=== PATIENT | female | born 1985 | race African-American/Black ===

== ENCOUNTER 2016-08-18 12:48 | Inpatient (IN) | payer OTHER ==
[~2016-08-18] VITALS: Ht 180.3 cm; Wt 135.5 kg
[2016-08-18] VITALS (12 sets, daily range): BP systolic 119–153; BP diastolic 58–93
[~2016-08-18 12:48] MED LIST: ADDERALL15 MG PO; ADDERALL30 MG PO; CLINDAMYCIN HC300 MG PO; DULCOLAX5 MG PO; FLEXERIL10 MG PO; FLEXERIL5 MG PO; INDOCIN50 MG PO; LIDODERM 5% P1 PATCH TD; MOBIC7.5 MG PO; NAPROSYN500 MG PO; NAPROXEN500 MG PO; NOHOMEMEDS; NORCO 5/3251 TABLET PO; PERCOCET 7.51 TABLET PO; ROBAXIN500 MG PO; ROBITUSSIN AC,T10 ML PO; SKELAXIN800 MG PO; TRAMADOL HCL50 MG PO; ULTRAM50 MG PO; VALIUM5 MG PO; ZYRTEC10 M3 PO
[2016-08-18] MEDS ORDERED: PRENATAL TABLE1 EAC3 PO (14:15)
[2016-08-18 14:27] LABS: EOSINOPHIL (%) 0.7 % (0-5); EOSINOPHIL COUNT 0.1 K/uL (0-0.3); HEMATOCRIT 35.7 % (36.0-46.0); IMMATURE GRANULOCYTE (%) 0.9 % (0.0-0.7); IMMATURE GRANULOCYTE COUNT 0.1 K/uL; INSTRUMENT ABS NEUTROPHIL CT 7.5 K/uL; LYMPHOCYTE COUNT 2.1 K/uL (1.0-2.8); MCH 27.6 PG (29.0-34.0); MCHC 33.9 G/DL (30.0-36.0); MCV 81.5 FL (83-99); MEAN PLAT.VOLUME 10.6 uM^3 (9.5-12.4); MONOCYTE (%) 5.7 % (3-12); MONOCYTE COUNT 0.6 K/uL (0-0.8); NEUTROPHIL (%) 72.1 % (45-76); NEUTROPHIL COUNT 7.5 K/uL (1.8-6.4); PLATELET COUNT 274 K/uL (156-360); RBC DIS.WIDTH-SD 37.7 % (39-53); RED BLOOD COUNT 4.38 M/uL (3.80-5.20); WHITE BLOOD COUNT 10.4 K/uL (4.1-10.2)
[2016-08-18 16:02] LABS: AMPHETAMINES QUANT VALUE 0 NG/ML; BARBITUATES QUANT VALUE 0 NG/ML; BENZODIAZEPINES QUANT VALUE 0 NG/ML; BENZODIAZEPINES, URINE SCREEN Negative (200 ng/mL); MARIJUANA QUANT VALUE 0 NG/ML; OPIATES QUANTITATIVE VALUE 0 NG/ML; PHENCYCLIDINE QUANT VALUE 0 NG/ML
[2016-08-19 02:23] VITALS: BP 148/72
[2016-08-19 04:27] VITALS: BP 117/59
[2016-08-19 06:31] VITALS: BP 99/52
[2016-08-19 06:48] LABS: EOSINOPHIL (%) 0 % (0-5); HEMATOCRIT 33.2 % (36.0-46.0); IMMATURE GRANULOCYTE (%) 0.6 % (0.0-0.7); IMMATURE GRANULOCYTE COUNT 0.1 K/uL; INSTRUMENT ABS NEUTROPHIL CT 17.1 K/uL; LYMPHOCYTE COUNT 1.4 K/uL (1.0-2.8); MCH 27.2 PG (29.0-34.0); MCHC 33.1 G/DL (30.0-36.0); MEAN PLAT.VOLUME 10.6 uM^3 (9.5-12.4); MONOCYTE (%) 2.8 % (3-12); MONOCYTE COUNT 0.5 K/uL (0-0.8); NEUTROPHIL (%) 89.4 % (45-76); NEUTROPHIL COUNT 17.1 K/uL (1.8-6.4); PLATELET COUNT 269 K/uL (156-360); RBC DIS.WIDTH-CV 12.7 % (11.8-14.6); RBC DIS.WIDTH-SD 38.3 % (39-53); RED BLOOD COUNT 4.05 M/uL (3.80-5.20); WHITE BLOOD COUNT 19.1 K/uL (4.1-10.2)
[2016-08-19 08:28] VITALS: BP 116/67
[2016-08-19 11:08] LABS: TREPONEMA ANTIBODY NEGATIVE (NEGATIVE)
[2016-08-19 23:00] VITALS: BP 120/57
[2016-08-20 02:47] VITALS: BP 115/61
[2016-08-20 08:01] VITALS: BP 120/65
[2016-08-20 10:56] VITALS: BP 99/54
[2016-08-20 14:26] VITALS: BP 117/59
[2016-08-21 06:56] VITALS: BP 133/72
[2016-08-21 11:06] VITALS: BP 128/67
[2016-08-21 19:35] VITALS: BP 130/85
[2016-08-21 23:03] VITALS: BP 127/64
[2016-08-22 03:09] VITALS: BP 140/80
[2016-08-22 07:08] VITALS: BP 139/95
[2016-08-22] MEDS ORDERED: IBUPROFEN800 MG PO (08:40)
[2016-08-22] MEDS ORDERED: OXYCODONE-APAP1 EACH PO (08:40)
[2016-08-22 09:00] VITALS: BP 126/64
[2016-08-22 10:49] VITALS: BP 129/74
== END 2016-08-22 14:08 | disposition home or self-care (01) | DRG 765 ==
LOC: LDRP-OP → 2WEST 12:49 → LDRP-OP 09-26 15:07
PROVIDERS: Advanced Practice Midwife; Obstetrics & Gynecology
PROC: 3E0R3CZ (ICD-10-PCS; principal; 2016-08-18)
PROC: 00HU33Z Insertion of Infusion Device into Spinal Canal, Percutaneous Approach (ICD-10-PCS; principal; 2016-08-18)
PROC: 10D00Z1 Extraction of Products of Conception, Low, Open Approach (ICD-10-PCS; principal; 2016-08-18)
DX: O76 Abnormality in fetal heart rate and rhythm complicating labor and delivery (principal); O36.5930 Maternal care for other known or suspected poor fetal growth, third trimester, not applicable or unspecified; O69.2XX0 Labor and delivery complicated by other cord entanglement, with compression, not applicable or unspecified; O41.03X0 Oligohydramnios, third trimester, not applicable or unspecified; E66.9 Obesity, unspecified; O69.81X0 Labor and delivery complicated by cord around neck, without compression, not applicable or unspecified; O77.0 Labor and delivery complicated by meconium in amniotic fluid; O99.323 Drug use complicating pregnancy, third trimester; F14.90 Cocaine use, unspecified, uncomplicated; O99.824 Streptococcus B carrier state complicating childbirth; O99.214 Obesity complicating childbirth; Z68.30 Body mass index [BMI] 30.0-30.9, adult; Z3A.38 38 weeks gestation of pregnancy; Z37.0 Single live birth
CPT/HCPCS: 80306 90; 85025; 86780; 86900; 86901; 88307; C1755; J1050; J1100; J1200; J1885; J2274; J2405; J3010; J7120

== ENCOUNTER 2016-12-12 13:07 | Day surgery (SDC) | payer OTHER ==
[~2016-12-12] VITALS: Ht 177.8 cm; Wt 135.5 kg
[~2016-12-12 13:07] MED LIST changes: -ADDERALL15 MG PO; +IBUPROFEN800 MG PO; +OXYCODONE-APAP1 EACH PO; +PRENATAL TABLE1 EAC3 PO
== END 2016-12-12 14:30 | disposition home or self-care (01) ==
LOC: PAIN 13:07 → SDC 13:15 → PAIN 13:15
DX: M47.26 Other spondylosis with radiculopathy, lumbar region (principal); M51.16 Intervertebral disc disorders with radiculopathy, lumbar region; M48.061 Spinal stenosis, lumbar region without neurogenic claudication; I10 Essential (primary) hypertension; E66.3 Overweight; Z68.41 Body mass index [BMI] 40.0-44.9, adult; Z88.0 Allergy status to penicillin
CPT/HCPCS: J1030; J2250; J3010; S0020